=== PATIENT | male | born 1985 | race Caucasian/White ===

== ENCOUNTER 2022-02-09 08:04 | Day surgery (SDC) | payer OTHER ==
[~2022-02-09] VITALS: Ht 180.3 cm; Wt 82.0 kg
[2022-02-09] VITALS (162 sets, daily range): BP systolic 95–147; BP diastolic 44–102
[2022-02-09 07:41] LABS: HEMOGLOBIN 13.8 g/dl (14.0-18.0); IMMATURE GRANULOCYTES 0.3 % (0.0-5.0); MEAN CELL VOLUME 93.7 fL CALC (80.0-100.0); MEAN CORPUSCULAR HGB 30.1 pG CALC (26.0-32.0); MEAN CORPUSCULAR HGB CONC 32.1 g/dL CAL (32.0-36.0); NEUT# 3.46 thou/uL (1.82-7.42); RED BLOOD COUNT 4.59 mill/uL (4.70-6.10); RED CELL DISTRI WIDTH 12.2 % (11.5-15.5)
[~2022-02-09 08:04] MED LIST: CLONAZEPAM1 MG PO; KEPPRA750 M2 PO; SERTRALINE50 MG PO
[2022-02-09 08:05] LABS: ALBUMIN 4.3 g/dL (3.2-5.0); ALKALINE PHOSPHATASE 60 u/l (38-126); ANION GAP 11 (6-22 (CALC)); BILIRUBIN, TOTAL 0.4 mg/dL (0.0-1.4); BUN 12 mg/dL (9-20); BUN/CREATININE RATIO 15 (12-20 (CALC)); CARBON DIOXIDE 32 mmol/l (22-30); CHLORIDE 102 mmol/l (95-108); CREATININE 0.8 mg/dL (0.7-1.3); GFR FOR AFR.AMER. > 60 ML/MIN (>=60 (CALC)); GFR OTHER RACES > 60 ML/MIN (>=60 (CALC)); POTASSIUM 4.2 mmol/l (3.5-5.1); SGOT/AST 31 u/l (17-59); SODIUM 140 mmol/l (137-146); TOTAL PROTEIN 6.9 g/dL (6.3-8.2)
[2022-02-10 02:56] VITALS: BP 130/70
[2022-02-10 06:25] LABS: ALBUMIN 3.9 g/dL (3.2-5.0); ALKALINE PHOSPHATASE 59 u/l (38-126); ANION GAP 10 (6-22 (CALC)); BILIRUBIN, TOTAL 0.4 mg/dL (0.0-1.4); BUN 10 mg/dL (9-20); BUN/CREATININE RATIO 14 (12-20 (CALC)); CHLORIDE 106 mmol/l (95-108); CREATININE 0.7 mg/dL (0.7-1.3); GFR FOR AFR.AMER. > 60 ML/MIN (>=60 (CALC)); GFR OTHER RACES > 60 ML/MIN (>=60 (CALC)); POTASSIUM 4.1 mmol/l (3.5-5.1); SGOT/AST 29 u/l (17-59); SODIUM 137 mmol/l (137-146); TOTAL PROTEIN 6.3 g/dL (6.3-8.2)
[2022-02-10 06:35] LABS: CARBON DIOXIDE 25 mmol/l (22-30)
[2022-02-10 07:35] VITALS: BP 125/61
[2022-02-10 09:17] VITALS: BP 125/61
== END 2022-02-09 12:15 | disposition home or self-care (01) | DRG 897 ==
LOC: ANR 08:04 → MS2 08:06 → ANR 12:15
PROVIDERS: ATTEND Anesthesiology
DX: F11.20 Opioid dependence, uncomplicated (principal)
CPT/HCPCS: J1953; J2060; J2354